=== PATIENT | female | born 1965 | race Caucasian/White ===

== ENCOUNTER 2018-04-11 08:54 | Day surgery (SDC) | payer MEDICAID ==
[~2018-04-11] VITALS: Ht 170.2 cm; Wt 60.8 kg
[2018-04-11] MEDS ORDERED: ALBUTEROL SULFATE 0.083% 2.5 MG/3 ML VIAL.NEB INH ONE ×2 (10:00→10:01)
[2018-04-11] MEDS ORDERED: LR 1,000 ML IV SCH (11:39)
[2018-04-11] MEDS ORDERED: METOCLOPRAMIDE HCL 10 MG/2 ML VIAL IVP PRN (11:45)
[2018-04-11] MEDS ORDERED: MORPHINE 4 MG/ML INJ. SYRINGE IVP PRN ×3 (11:45)
[2018-04-11] MEDS ORDERED: MIDAZOLAM HCL 5 MG/ML VIAL (VERSED) IV ONE (13:00)
[2018-04-11] MEDS ORDERED: OXYMETAZOLINE HCL 0.05% NASAL SPRAY NS ONE (13:00)
[2018-04-11] MEDS ORDERED: LR 1,000 ML IV.SOLN IV ONE (13:00)
[2018-04-11] MEDS ORDERED: ONDANSETRON HCL 4 MG/2 ML VIAL ONE (13:00)
[2018-04-11] MEDS ORDERED: CIPROFLOXACIN LACTATE/D5W 400 MG/200 ML PIGGYBACK IV ONE (13:00)
[2018-04-11] MEDS ORDERED: SEVOFLURANE 15 MIN GAS INH ONE (13:00)
[2018-04-11] MEDS ORDERED: PROPOFOL 200MG/ 20ML VIAL (DIPRIVAN) IV ONE (13:00)
[2018-04-11] MEDS ORDERED: fentaNYL CITRATE 250 MCG/5 ML AMP ONE (13:00)
[2018-04-11] MEDS ORDERED: LIDOCAINE/EPI 1% 1:100000 20 ML VIAL INJ ONE (13:00)
[2018-04-11] MEDS ORDERED: ROCURONIUM BROMIDE 10 MG/ML (ZEMURON) ONE (13:00)
[2018-04-11] MEDS ORDERED: DEXAMETHASONE SOD PHOSPHATE 4 MG/ML VIAL ONE (13:00)
[2018-04-11 14:28] VITALS: BP_SYST 113
== END 2018-04-11 15:00 | disposition home or self-care (01) ==
LOC: SDS 08:54 → SMU 08:54 → SDS 15:00
PROVIDERS: ATTEND Otolaryngology
DX: J32.4 Chronic pansinusitis (principal); J45.20 Mild intermittent asthma, uncomplicated; J32.0 Chronic maxillary sinusitis; G62.9 Polyneuropathy, unspecified; Z88.8 Allergy status to other drugs, medicaments and biological substances; Z79.899 Other long term (current) drug therapy; Z98.890 Other specified postprocedural states
CPT/HCPCS: 31255; 31256; 31296; 31297; 87070 ×2; 87075; 87101; 87116; 88302; 88305; 88311; 94640; C1726; J0744; J1100; J2250; J2405; J2704; J3010; J7120; J7613